=== PATIENT | male | born 1970 | race Caucasian/White ===

== ENCOUNTER 2018-03-11 16:31 | Observation (INO) | payer OTHER, SELFPAY ==
[2018-03-11] VITALS (8 sets, daily range): BP systolic 108–148; BP diastolic 66–95; PULSE 62–104; RESP 13–20; TEMP 35.6–36.5; O2SAT 96–100; BMI 32.8
--- NOTE | 2018-03-11 16:49 | DI.RAD.S_ITS ---
PROCEDURE: XR CHEST 1V INDICATIONS: Chest pain TECHNIQUE: One view of the chest was acquired. COMPARISON: None. FINDINGS: Surgical changes and devices: Clips at the gastroesophageal junction. Cholecystectomy clips. Lungs and pleura: No pleural effusions or pneumothorax. Lungs are clear. Mediastinum: Mediastinal contours appear normal. Heart size is normal. Bones and chest wall: No suspicious bony lesions. Overlying soft tissues appear unremarkable. IMPRESSION: No acute cardiopulmonary disease process. Dictated by: Agustina Angel MD, PhD on 03/11/2018 at 17:29 Approved by: Agustina Angel MD, PhD on 03/11/2018 at 17:30
[2018-03-11 17:11] LABS: HEMOLYSIS < 15 (0-50)
[2018-03-11 17:12] LABS: INR 1.1 (0.9-1.3); Prothrombin Time 11.9 SECONDS (10.1-12.7)
[2018-03-11 17:15] LABS: PTT Partial Thromboplastin Tim 17 SECONDS (26.4-36.2)
[2018-03-11 17:17] LABS: Blood Urea Nitrogen 18 mg/dL (9-20); Calcium 9.1 mg/dL (8.4-10.2); Carbon Dioxide 25 mmol/L (22-32); Chloride 108 mmol/L (98-107); Estimated Glomerular Filt Rate > 60.0 mL/min (>60); Glucose 81 mg/dL (70-100); Potassium 3.9 mmol/L (3.4-5.1); Sodium 142 mmol/L (137-145)
--- NOTE | 2018-03-11 17:17 | PC.NURSE ---
Intermittent chest pressure for 2 months. Worsening with exertion and SOB with exertion. Pt comes to ED today after continued chest pressure and 2 near syncopal episodes. Pt fell for one of the episodes and helped him to floor without injury. Pt states he was not doing anything in particular when he felt as if he was going to pass out. C/o a mild frontal headache. Denies SOB or any other symptoms at this time. at bedside.
[2018-03-11 17:30] LABS: Troponin I < 0.012 ng/mL (0.01-0.034)
[2018-03-11 17:53] LABS: Add Manual Diff / Slide Review NO; Basophils Percent Auto 0.7 % (0-2); Eosinophils Percent Auto 3.3 % (2-4); Hematocrit 39.2 % (41-53); Hemoglobin 13.1 g/dL (13.5-17.5); Lymphocytes Percent Auto 31.7 % (25-40); Mean Corpuscular HGB Conc 33.5 % (30-36); Mean Corpuscular Hemoglobin 28.2 PG (26-34); Mean Corpuscular Volume 84.2 fL (80-100); Monocytes Percent Auto 11.1 % (3-14); Neutrophils Absolute Auto 3800 /uL (3000-5900); Neutrophils Percent Auto 53.2 % (50-75); Platelet Count 176 X10^3/uL (150-400); Red Blood Cell Count 4.66 X10^6/uL (4.5-5.9); White Blood Cell Count 7.1 X10^3/uL (4.5-11.0)
--- NOTE | 2018-03-11 18:07 | ED.CHESTPAIN ---
HPI - Chest Pain <[facility] - Last Filed: 03/11/18 23:39> General Chief Complaint: Chest Pain Stated Complaint: CHEST PRESSURE, PASSED X 2 TODAY Time Seen by Provider: 03/11/18 16:48 Source: patient and family Mode of arrival: ambulatory Limitations: no limitations History of Present Illness HPI narrative: Patient presents with chest pain on off for the past several weeks. He has seen his primary care provider who did an EKG and some blood work. He states that this has happened twice today and is associated with some lightheadedness. He denies any feelings of palpitations, swelling in his feet, shortness of breath fever nausea vomiting or diarrhea. He states his pain is substernal and does not radiate anywhere. He states it is pressure. He denies any heart history, but states that is present is family. 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 Related Data Home Medications Medication Instructions Recorded Confirmed No Known Home Medications 03/11/18 03/11/18 Allergies Allergy/AdvReac Type Severity Reaction Status Date / Time No Known Drug Allergies Allergy Verified 03/11/18 22:14 Review of Systems <HOA Cruz - Last Filed: 03/11/18 23:39> Review of Systems GENERAL: See HPI HEENT: Denies sinus pain, ear pain, sore throat, difficulty swallowing, dizziness. RESPIRATORY: Denies dyspnea, cough, wheezing, hemoptysis, sputum. CARDIOVASCULAR: See HPI GASTROINTESTINAL: Denies nausea, vomiting, abdominal pain, diarrhea, constipation, melena. : Denies dysuria, frequency, incontinence, hematuria, urinary retention. MUSCULOSKELETAL: denies weakness, joint pain, or bony pain SKIN: Denies rash, skin lesions, or other NEUROLOGIC: see HPI PSYCHIATRIC: No concerning psychosocial issues. 12 point review of systems is negative except for those stated above Exam <HOA Cruz - Last Filed: 03/11/18 23:39> Narrative Exam Narrative: GENERAL: This is a well-nourished, well-developed patient, in no acute distress. HEAD: Atraumatic. Normocephalic. No temporal or scalp tenderness. EYES: Pupils equal round and reactive. Extraocular motions intact. No scleral icterus. No injection or drainage. ENT: Nose without bleeding, purulent drainage or septal hematoma. Throat without erythema, tonsillar hypertrophy or exudate. Uvula midline. Airway patent. NECK: Trachea midline. No JVD or lymphadenopathy. Supple, nontender, no meningeal signs. CARDIOVASCULAR: Regular rate and rhythm RESPIRATORY: Clear to auscultation. Breath sounds equal bilaterally. No wheezes, rales, or rhonchi. GASTROINTESTINAL: Abdomen soft, non-tender, nondistended. No hepato-splenomegaly, or palpable masses. No guarding. EXTREMITIES: No clubbing, cyanosis, or edema. No joint tenderness, effusion, or edema noted. BACK: Nontender without deformity or crepitance. No flank tenderness. NEURO: AOx3. Facial nerves grossly normal. Steady on feet. Clear speech. SKIN: No rash or erythema. Initial Vital Signs Initial Vital Signs: Vital Signs Temperature 96.1 F L 03/11/18 16:34 Pulse Rate 62 03/11/18 16:34 Respiratory Rate 16 03/11/18 16:34 Blood Pressure 125/80 H 03/11/18 16:34 Pulse Oximetry 98 03/11/18 16:34 <Anuj Go DO - Last Filed: 03/12/18 07:01> Initial Vital Signs Initial Vital Signs: Vital Signs Temperature 96.1 F L 03/11/18 16:34 Pulse Rate 62 03/11/18 16:34 Respiratory Rate 16 03/11/18 16:34 Blood Pressure 125/80 H 03/11/18 16:34 Pulse Oximetry 98 03/11/18 16:34 Course <ODALYS Cruz-[facility] - Last Filed: 03/11/18 23:39> Hospital Course: Patient presented the chief complaint of chest pain. An EKG was completed which showed sinus rhythm with PACs. The patient was placed on telemetry. An IV was then inserted and lab work was drawn. His lab work came back row see normal. However as I was speaking with him he was noted to be going in and out of AFib/flutter with associated chest pressure. I contacted Dr. Turpin who kindly agree to admit the patient for observation and cardiac rule out. His vital signs remained stable throughout his stay other than this transient tachycardia. Orders Ordered: ED Orders 03/11/18 22:05 Education, smoking cessation ONGOING 03/12/18 05:57 Troponin I Urgent Acetaminophen (Tylenol) 650 mg PO Q6HR PRN PRN Reason: As Needed for Fever/Mild Pain Aspirin (Aspirin Ec) 325 mg PO DAILY [facility] Enoxaparin Sodium (Lovenox) 40 mg SUBCUT DAILY [facility] Metoprolol Succinate (Toprol Xl) 50 mg PO DAILY [facility] Last Admin: 03/11/18 22:57 Dose: 50 mg Sodium Chloride (Normal Saline 0.9% Flush) 10 ml IV PRN PRN PRN Reason: Flush Sodium Chloride (Normal Saline 0.9% Flush) 10 ml IV BID [facility] Vital Signs - 8 hr 03/11/18 23:40 03/12/18 00:14 03/12/18 00:15 Temperature 98.0 F Pulse Rate 63 63 Respiratory Rate 16 Blood Pressure 115/67 115/67 Pulse Oximetry 96 96 03/12/18 02:00 03/12/18 06:38 Temperature 97.9 F Pulse Rate 56 L Respiratory Rate 14 16 Blood Pressure 119/66 Pulse Oximetry 94 <Anuj Go DO - Last Filed: 03/12/18 07:01> Orders Ordered: ED Orders 03/11/18 22:05 Education, smoking cessation ONGOING 03/12/18 05:57 Troponin I Urgent Acetaminophen (Tylenol) 650 mg PO Q6HR PRN PRN Reason: As Needed for Fever/Mild Pain Aspirin (Aspirin Ec) 325 mg PO DAILY [facility] Enoxaparin Sodium (Lovenox) 40 mg SUBCUT DAILY [facility] Metoprolol Succinate (Toprol Xl) 50 mg PO DAILY [facility] Last Admin: 03/11/18 22:57 Dose: 50 mg Sodium Chloride (Normal Saline 0.9% Flush) 10 ml IV PRN PRN PRN Reason: Flush Sodium Chloride (Normal Saline 0.9% Flush) 10 ml IV BID [facility] Vital Signs - 8 hr 03/11/18 23:40 03/12/18 00:14 03/12/18 00:15 Temperature 98.0 F Pulse Rate 63 63 Respiratory Rate 16 Blood Pressure 115/67 115/67 Pulse Oximetry 96 96 03/12/18 02:00 03/12/18 06:38 Temperature 97.9 F Pulse Rate 56 L Respiratory Rate 14 16 Blood Pressure 119/66 Pulse Oximetry 94 MDM - Chest Pain <SAMANTA Cruz - Last Filed: 03/11/18 23:39> Lab Data Attestation: I reviewed the patient's lab results. Result diagrams: 03/11/18 16:55 03/11/18 16:55 Lab Results 03/11/18 03/11/18 03/11/18 Range/Units 16:55 16:55 16:55 WBC 7.1 (4.5-11.0) X10^3/uL RBC 4.66 (4.5-5.9) X10^6/uL Hgb 13.1 L (13.5-17.5) g/dL Hct 39.2 L (41-53) % MCV 84.2 (80-100) fL MCH 28.2 (26-34) PG MCHC 33.5 (30-36) % RDW 14.0 (11.6-14.8) % Plt Count 176 (150-400) X10^3/uL Neut % (Auto) 53.2 (50-75) % Lymph % (Auto) 31.7 (25-40) % Dickson % (Auto) 11.1 (3-14) % Eos % (Auto) 3.3 (2-4) % Baso % (Auto) 0.7 (0-2) % Neut # (Auto) 3800 (4286-2481) /uL PT 11.9 (10.1-12.7) SECONDS INR 1.1 (0.9-1.3) APTT 17 L (26.4-36.2) SECONDS Sodium 142 (137-145) mmol/L Potassium 3.9 (3.4-5.1) mmol/L Chloride 108 H (98-107) mmol/L Carbon Dioxide 25 (22-32) mmol/L BUN 18 (9-20) mg/dL Creatinine 1.00 (0.66-1.25) mg/dL Estimated GFR > 60.0 (>60) mL/min BUN/Creatinine Ratio 18.0 (6-22) Glucose 81 (70-100) mg/dL Calcium 9.1 (8.4-10.2) mg/dL Magnesium (1.6-2.3) mg/dL Troponin I < 0.012 (0.01-0.034) ng/mL B-Natriuretic Peptide 71.6 (<100) TSH (0.47-4.68) uIU/mL 03/11/18 03/11/18 03/12/18 Range/Units 16:55 16:55 05:57 WBC (4.5-11.0) X10^3/uL RBC (4.5-5.9) X10^6/uL Hgb (13.5-17.5) g/dL Hct (41-53) % MCV (80-100) fL MCH (26-34) PG MCHC (30-36) % RDW (11.6-14.8) % Plt Count (150-400) X10^3/uL Neut % (Auto) (50-75) % Lymph % (Auto) (25-40) % Dickson % (Auto) (3-14) % Eos % (Auto) (2-4) % Baso % (Auto) (0-2) % Neut # (Auto) (6322-1354) /uL PT (10.1-12.7) SECONDS INR (0.9-1.3) APTT (26.4-36.2) SECONDS Sodium (137-145) mmol/L Potassium (3.4-5.1) mmol/L Chloride (98-107) mmol/L Carbon Dioxide (22-32) mmol/L BUN (9-20) mg/dL Creatinine (0.66-1.25) mg/dL Estimated GFR (>60) mL/min BUN/Creatinine Ratio (6-22) Glucose (70-100) mg/dL Calcium (8.4-10.2) mg/dL Magnesium 2.5 H (1.6-2.3) mg/dL Troponin I < 0.012 (0.01-0.034) ng/mL B-Natriuretic Peptide (<100) TSH 1.26 (0.47-4.68) uIU/mL Imaging Data Chest x-ray: Radiologist's impression: View Report History [address] [address] XRay Report Signed Patient: Kelby Watkins MR#: [id number] : 1970 Acct:[id number] Age/Sex: 48 / M Date of Service: 03/11/18 Loc: ED Accession Number: [id number] Procedure: XR chest 1V Ordering Provider: Anuj Go D.O. PROCEDURE: XR CHEST 1V INDICATIONS: Chest pain TECHNIQUE: One view of the chest was acquired. COMPARISON: None. FINDINGS: Surgical changes and devices: Clips at the gastroesophageal junction. Cholecystectomy clips. Lungs and pleura: No pleural effusions or pneumothorax. Lungs are clear. Mediastinum: Mediastinal contours appear normal. Heart size is normal. Bones and chest wall: No suspicious bony lesions. Overlying soft tissues appear unremarkable. IMPRESSION: No acute cardiopulmonary disease process. Dictated by: Agustina Angel MD, PhD on 03/11/2018 at 17:29 Approved by: Agustina Angel MD, PhD on 03/11/2018 at 17:30 ECG Data Attestation: I personally reviewed and interpreted this ECG as follows: Interpretation: Sinus rhythm with frequent PACs. Ventricular rate 69. No ST elevation or depression. MDM Narrative Medical decision making narrative: Patient presented with chief complaint of chest pain. His 1st troponin was negative. His EKG showed frequent PACs. However well speaking with the complaint of chest pressure and was noted to be in AFib flutter in the 150s. Given his new onset arrhythmia, I contacted Dr. Turpin who kindly agreed to admit the patient to observation. Patient and were in accordance with this plan. <Anuj Go, - Last Filed: 03/12/18 07:01> Lab Data Lab Results 03/11/18 03/11/18 03/11/18 Range/Units 16:55 16:55 16:55 WBC 7.1 (4.5-11.0) X10^3/uL RBC 4.66 (4.5-5.9) X10^6/uL Hgb 13.1 L (13.5-17.5) g/dL Hct 39.2 L (41-53) % MCV 84.2 (80-100) fL MCH 28.2 (26-34) PG MCHC 33.5 (30-36) % RDW 14.0 (11.6-14.8) % Plt Count 176 (150-400) X10^3/uL Neut % (Auto) 53.2 (50-75) % Lymph % (Auto) 31.7 (25-40) % Dickson % (Auto) 11.1 (3-14) % Eos % (Auto) 3.3 (2-4) % Baso % (Auto) 0.7 (0-2) % Neut # (Auto) 3800 (9885-0139) /uL PT 11.9 (10.1-12.7) SECONDS INR 1.1 (0.9-1.3) APTT 17 L (26.4-36.2) SECONDS Sodium 142 (137-145) mmol/L Potassium 3.9 (3.4-5.1) mmol/L Chloride 108 H (98-107) mmol/L Carbon Dioxide 25 (22-32) mmol/L BUN 18 (9-20) mg/dL Creatinine 1.00 (0.66-1.25) mg/dL Estimated GFR > 60.0 (>60) mL/min BUN/Creatinine Ratio 18.0 (6-22) Glucose 81 (70-100) mg/dL Calcium 9.1 (8.4-10.2) mg/dL Magnesium (1.6-2.3) mg/dL Troponin I < 0.012 (0.01-0.034) ng/mL B-Natriuretic Peptide 71.6 (<100) TSH (0.47-4.68) uIU/mL 03/11/18 03/11/18 03/12/18 Range/Units 16:55 16:55 05:57 WBC (4.5-11.0) X10^3/uL RBC (4.5-5.9) X10^6/uL Hgb (13.5-17.5) g/dL Hct (41-53) % MCV (80-100) fL MCH (26-34) PG MCHC (30-36) % RDW (11.6-14.8) % Plt Count (150-400) X10^3/uL Neut % (Auto) (50-75) % Lymph % (Auto) (25-40) % Dickson % (Auto) (3-14) % Eos % (Auto) (2-4) % Baso % (Auto) (0-2) % Neut # (Auto) (1436-9050) /uL PT (10.1-12.7) SECONDS INR (0.9-1.3) APTT (26.4-36.2) SECONDS Sodium (137-145) mmol/L Potassium (3.4-5.1) mmol/L Chloride (98-107) mmol/L Carbon Dioxide (22-32) mmol/L BUN (9-20) mg/dL Creatinine (0.66-1.25) mg/dL Estimated GFR (>60) mL/min BUN/Creatinine Ratio (6-22) Glucose (70-100) mg/dL Calcium (8.4-10.2) mg/dL Magnesium 2.5 H (1.6-2.3) mg/dL Troponin I < 0.012 (0.01-0.034) ng/mL B-Natriuretic Peptide (<100) TSH 1.26 (0.47-4.68) uIU/mL Discharge Plan Departure Patient Disposition: Admitted as Observation Clinical Impression: Atrial fib/flutter, transient, Chest pain Discharge Date/Time: 03/11/18 19:04 Interventions: ED Discharge Assessment Last Done: 03/11/18 18:45 Admit Date/Time: 03/11/18 18:51 Admit Provider: Isiah Turpin <Anuj Go DO - Last Filed: 03/12/18 07:01> [facility] ED Attending Alfredo Attestation: I was available for consultation during this patient's emergency department encounter
[2018-03-11 18:19] LABS: B Type Natriuretic Peptide 71.6 (<100)
--- NOTE | 2018-03-11 19:26 | PC.NURSE ---
Addendum entered by Lyubov Salazar R.N. 03/11/18 20:53: 2030 Dr. Papi garcia, awaiting for new orders. Original Note: Addendum entered by Lyubov Salazar R.N. 03/11/18 20:02: Telemetry: Afib CVR 60-99HR. Patient awake and alert, no chest pain or discomfort. Normotensive BP. O2 sat 97% on RA. No SOB or resp distress noted. Original Note: Admit note: Patient admitted at 1910 from ED to Acute Care accompanied by . Patient ambulated from gurney to bed with steady gait. Placed on Cardiac/Tele monitor. HR 90, irregular on ascultation. No c/o chest pain, SOB, dizziness, palpitations or nausea. 2 + LE and UE pulses. Mild facial pallor. Appears a bit discouraged to be admitted to the hospital but otherwise calm, cooperative and pleasant. Discussed importance of hospital admission and observation, updated regarding plan of care, room/environment. Call light within reach.
--- NOTE | 2018-03-11 22:12 | P.HP_ITS ---
History of Present Illness Date Patient Seen: 03/11/18 Time Patient Seen: 22:08 Chief complaint: CHEST PRESSURE, PASSED X 2 TODAY Narrative: 48-year-old male presents today with episode of lightheadedness initially brought him in and then while he was here he is noted to have some intermittent episodes of atrial flutter lasting for a minute or 2 and he has been having some off and on chest pain pain or pressure also that is been nonexertional atypical. Previously had a stress test many years ago that was unremarkable. He has not had any hypertension or hyperlipidemia. He is also a nonsmoker Patient History Surgical History History of cholecystectomy (Acute) Hx of appendectomy (Acute) Hx of gastric bypass (Acute) Family & Social History Social History: household members spouse Prior Living Arrangements House Safety & Behavioral: Feels Safe in Current Yes Environment Been Physically Hurt or No Threatened By a Person Suicidal Ideation Description None Tobacco & Substance use: Smoking Status Never smoker alcohol intake frequency other Substance Use Type does not use Meds Home Medications Medication Instructions Recorded Confirmed Type No Known Home Medications 03/11/18 03/11/18 History Allergies Allergy/AdvReac Type Severity Reaction Status Date / Time No Known Allergies Allergy Uncoded 12/31/17 12:40 Review of Systems Review of Systems All systems reviewed & are unremarkable except as noted in HPI and below Exam Vital Signs (past 8 hours): Vital Signs - 8 hr 3 03/11/18 16:34 03/11/18 17:32 03/11/18 18:30 Temperature 96.1 F L Pulse Rate 62 94 H 104 H Respiratory Rate 16 15 13 Blood Pressure 125/80 H Blood Pressure [Right Arm] 133/86 H 148/95 H Pulse Oximetry 98 99 100 3 03/11/18 18:57 03/11/18 19:45 03/11/18 21:42 Temperature 97.7 F 97.7 F Pulse Rate 90 89 84 Respiratory Rate 20 18 16 Blood Pressure 119/92 H 129/92 H 125/79 H Blood Pressure [Right Arm] Pulse Oximetry 100 97 96 Pulse Oximetry 96 Oxygen Delivery Method Room Air Const General: cooperative HENMT Head: normal to inspection and normocephalic Mouth: oral mucosae normal Neck Neck: full ROM and No JVD Carotids: normal carotid upstroke Chest Chest: normal inspection of the chest Resp Effort & Inspection: normal respiratory effort, able to speak in complete sentences and no respiratory distress Auscultation: clear to auscultation bilaterally Cardio Palpation: normal PMI Rate: regular rate Rhythm: regular rhythm Heart Sounds: S1 normal and S2 normal GI Inspection: normal to inspection Palpation: soft, no hepatosplenomegaly and No tender Auscultation: normal bowel sounds Neuro General: alert, awake, oriented x3 and CN's II-XI intact bilaterally Psych Affect: normal affect Attitude: cooperative Thought Process: normal Thought Content: normal Judgment: judgment good Objective Labs Result Diagrams: 03/11/18 16:55 03/11/18 16:55 Labs: Laboratory Results - last 24 hr 03/11/18 03/11/18 03/11/18 16:55 16:55 16:55 WBC 7.1 RBC 4.66 Hgb 13.1 L Hct 39.2 L MCV 84.2 MCH 28.2 MCHC 33.5 RDW 14.0 Plt Count 176 Neut % (Auto) 53.2 Lymph % (Auto) 31.7 Wayne % (Auto) 11.1 Eos % (Auto) 3.3 Baso % (Auto) 0.7 Neut # (Auto) 3800 PT 11.9 INR 1.1 APTT 17 L Sodium 142 Potassium 3.9 Chloride 108 H Carbon Dioxide 25 BUN 18 Creatinine 1.00 Estimated GFR > 60.0 BUN/Creatinine Ratio 18.0 Glucose 81 Calcium 9.1 Troponin I < 0.012 B-Natriuretic Peptide 71.6 Assessment & Plan Plan: Assessment/Plan Narrative: One. Chest pain with associated intermittent atrial flutter. Plan to check thyroid magnesium his potassium was normal. Serial troponins will be checked. Probably needs an echo and stress test. Monitor overnight with telemetry.
[2018-03-11 22:36] LABS: Magnesium 2.5 mg/dL (1.6-2.3)
[2018-03-11] MEDS: METOPROLOL ER 50 MG TABLET PO (22:57)
[2018-03-11 23:07] LABS: TSH w/ Reflex to FT4 1.26 uIU/mL (0.47-4.68)
--- NOTE | 2018-03-11 23:39 | ED_ITS ---
H[facility] - Chest Pain [facility] Last Filed: 03/11/18 23:39> General Chief Complaint: Chest Pain Stated Complaint: CHEST PRESSURE, PASSED X 2 TODAY Time Seen by Provider: 03/11/18 16:48 Source: patient and family Mode of arrival: ambulatory Limitations: no limitations History of Present Illness HPI narrative: Patient presents with chest pain on off for the past several weeks. He has seen his primary care provider who did an EKG and some blood work. He states that this has happened twice today and is associated with some lightheadedness. He denies any feelings of palpitations, swelling in his feet, shortness of breath fever nausea vomiting or diarrhea. He states his pain is substernal and does not radiate anywhere. He states it is pressure. He denies any heart history, but states that is present is family. 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 Related Data Home Medications Medication Instructions Recorded Confirmed No Known Home Medications 03/11/18 03/11/18 Allergies Allergy/AdvReac Type Severity Reaction Status Date / Time No Known Drug Allergies Allergy Verified 03/11/18 22:14 Review of Systems <HOA Cruz - Last Filed: 03/11/18 23:39> Review of Systems GENERAL: See HPI HEENT: Denies sinus pain, ear pain, sore throat, difficulty swallowing, dizziness. RESPIRATORY: Denies dyspnea, cough, wheezing, hemoptysis, sputum. CARDIOVASCULAR: See HPI GASTROINTESTINAL: Denies nausea, vomiting, abdominal pain, diarrhea, constipation, melena. : Denies dysuria, frequency, incontinence, hematuria, urinary retention. MUSCULOSKELETAL: denies weakness, joint pain, or bony pain SKIN: Denies rash, skin lesions, or other NEUROLOGIC: see HPI PSYCHIATRIC: No concerning psychosocial issues. 12 point review of systems is negative except for those stated above Exam <HOA Cruz - Last Filed: 03/11/18 23:39> Narrative Exam Narrative: GENERAL: This is a well-nourished, well-developed patient, in no acute distress. HEAD: Atraumatic. Normocephalic. No temporal or scalp tenderness. EYES: Pupils equal round and reactive. Extraocular motions intact. No scleral icterus. No injection or drainage. ENT: Nose without bleeding, purulent drainage or septal hematoma. Throat without erythema, tonsillar hypertrophy or exudate. Uvula midline. Airway patent. NECK: Trachea midline. No JVD or lymphadenopathy. Supple, nontender, no meningeal signs. CARDIOVASCULAR: Regular rate and rhythm RESPIRATORY: Clear to auscultation. Breath sounds equal bilaterally. No wheezes , rales, or rhonchi. GASTROINTESTINAL: Abdomen soft, non-tender, nondistended. No hepato-splenomegaly , or palpable masses. No guarding. EXTREMITIES: No clubbing, cyanosis, or edema. No joint tenderness, effusion, or edema noted. BACK: Nontender without deformity or crepitance. No flank tenderness. NEURO: AOx3. Facial nerves grossly normal. Steady on feet. Clear speech. SKIN: No rash or erythema. Initial Vital Signs Initial Vital Signs: Vital Signs Temperature 96.1 F L 03/11/18 16:34 Pulse Rate 62 03/11/18 16:34 Respiratory Rate 16 03/11/18 16:34 Blood Pressure 125/80 H 03/11/18 16:34 Pulse Oximetry 98 03/11/18 16:34 <Anuj Go DO - Last Filed: 03/12/18 07:01> Initial Vital Signs Initial Vital Signs: Vital Signs Temperature 96.1 F L 03/11/18 16:34 Pulse Rate 62 03/11/18 16:34 Respiratory Rate 16 03/11/18 16:34 Blood Pressure 125/80 H 03/11/18 16:34 Pulse Oximetry 98 03/11/18 16:34 Course <ODALYS Cruz-[facility] - Last Filed: 03/11/18 23:39> Hospital Course: Patient presented the chief complaint of chest pain. An EKG was completed which showed sinus rhythm with PACs. The patient was placed on telemetry. An IV was then inserted and lab work was drawn. His lab work came back row see normal. However as I was speaking with him he was noted to be going in and out of AFib/ flutter with associated chest pressure. I contacted Dr. Turpin who kindly agree to admit the patient for observation and cardiac rule out. His vital signs remained stable throughout his stay other than this transient tachycardia. Orders Ordered: ED Orders 03/11/18 22:05 Education, smoking cessation ONGOING 03/12/18 05:57 Troponin I Urgent Acetaminophen (Tylenol) 650 mg PO Q6HR PRN PRN Reason: As Needed for Fever/Mild Pain Aspirin (Aspirin Ec) 325 mg PO DAILY [facility] Enoxaparin Sodium (Lovenox) 40 mg SUBCUT DAILY [facility] Metoprolol Succinate (Toprol Xl) 50 mg PO DAILY [facility] Last Admin: 03/11/18 22:57 Dose: 50 mg Sodium Chloride (Normal Saline 0.9% Flush) 10 ml IV PRN PRN PRN Reason: Flush Sodium Chloride (Normal Saline 0.9% Flush) 10 ml IV BID [facility] Vital Signs - 8 hr 03/11/18 23:40 03/12/18 00:14 03/12/18 00:15 Temperature 98.0 F Pulse Rate 63 63 Respiratory Rate 16 Blood Pressure 115/67 115/67 Pulse Oximetry 96 96 03/12/18 02:00 03/12/18 06:38 Temperature 97.9 F Pulse Rate 56 L Respiratory Rate 14 16 Blood Pressure 119/66 Pulse Oximetry 94 <Anuj Go DO - Last Filed: 03/12/18 07:01> Orders Ordered: ED Orders 03/11/18 22:05 Education, smoking cessation ONGOING 03/12/18 05:57 Troponin I Urgent Acetaminophen (Tylenol) 650 mg PO Q6HR PRN PRN Reason: As Needed for Fever/Mild Pain Aspirin (Aspirin Ec) 325 mg PO DAILY [facility] Enoxaparin Sodium (Lovenox) 40 mg SUBCUT DAILY [facility] Metoprolol Succinate (Toprol Xl) 50 mg PO DAILY [facility] Last Admin: 03/11/18 22:57 Dose: 50 mg Sodium Chloride (Normal Saline 0.9% Flush) 10 ml IV PRN PRN PRN Reason: Flush Sodium Chloride (Normal Saline 0.9% Flush) 10 ml IV BID [facility] Vital Signs - 8 hr 03/11/18 23:40 03/12/18 00:14 03/12/18 00:15 Temperature 98.0 F Pulse Rate 63 63 Respiratory Rate 16 Blood Pressure 115/67 115/67 Pulse Oximetry 96 96 03/12/18 02:00 03/12/18 06:38 Temperature 97.9 F Pulse Rate 56 L Respiratory Rate 14 16 Blood Pressure 119/66 Pulse Oximetry 94 MDM - Chest Pain <SAMANTA Cruz - Last Filed: 03/11/18 23:39> Lab Data Attestation: I reviewed the patient's lab results. Result diagrams: 03/11/18 16:55 03/11/18 16:55 Lab Results 03/11/18 03/11/18 03/11/18 Range/Units 16:55 16:55 16:55 WBC 7.1 (4.5-11.0) X10^3/uL RBC 4.66 (4.5-5.9) X10^6/uL Hgb 13.1 L (13.5-17.5) g/dL Hct 39.2 L (41-53) % MCV 84.2 (80-100) fL MCH 28.2 (26-34) PG MCHC 33.5 (30-36) % RDW 14.0 (11.6-14.8) % Plt Count 176 (150-400) X10^3/uL Neut % (Auto) 53.2 (50-75) % Lymph % (Auto) 31.7 (25-40) % [place] % (Auto) 11.1 (3-14) % Eos % (Auto) 3.3 (2-4) % Baso % (Auto) 0.7 (0-2) % Neut # (Auto) 3800 (9373-9886) /uL PT 11.9 (10.1-12.7) SECONDS INR 1.1 (0.9-1.3) APTT 17 L (26.4-36.2) SECONDS Sodium 142 (137-145) mmol/L Potassium 3.9 (3.4-5.1) mmol/L Chloride 108 H (98-107) mmol/L Carbon Dioxide 25 (22-32) mmol/L BUN 18 (9-20) mg/dL Creatinine 1.00 (0.66-1.25) mg/dL Estimated GFR > 60.0 (>60) mL/min BUN/Creatinine Ratio 18.0 (6-22) Glucose 81 (70-100) mg/dL Calcium 9.1 (8.4-10.2) mg/dL Magnesium (1.6-2.3) mg/dL Troponin I < 0.012 (0.01-0.034) ng/mL B-Natriuretic Peptide 71.6 (<100) TSH (0.47-4.68) uIU/mL 03/11/18 03/11/18 03/12/18 Range/Units 16:55 16:55 05:57 WBC (4.5-11.0) X10^3/uL RBC (4.5-5.9) X10^6/uL Hgb (13.5-17.5) g/dL Hct (41-53) % MCV (80-100) fL MCH (26-34) PG MCHC (30-36) % RDW (11.6-14.8) % Plt Count (150-400) X10^3/uL Neut % (Auto) (50-75) % Lymph % (Auto) (25-40) % [place] % (Auto) (3-14) % Eos % (Auto) (2-4) % Baso % (Auto) (0-2) % Neut # (Auto) (7965-6472) /uL PT (10.1-12.7) SECONDS INR (0.9-1.3) APTT (26.4-36.2) SECONDS Sodium (137-145) mmol/L Potassium (3.4-5.1) mmol/L Chloride (98-107) mmol/L Carbon Dioxide (22-32) mmol/L BUN (9-20) mg/dL Creatinine (0.66-1.25) mg/dL Estimated GFR (>60) mL/min BUN/Creatinine Ratio (6-22) Glucose (70-100) mg/dL Calcium (8.4-10.2) mg/dL Magnesium 2.5 H (1.6-2.3) mg/dL Troponin I < 0.012 (0.01-0.034) ng/mL B-Natriuretic Peptide (<100) TSH 1.26 (0.47-4.68) uIU/mL Imaging Data Chest x-ray: Radiologist's impression: View Report History [address] [address] XRay Report Signed Patient: Kelby Watkins MR#: [id number] : 1970 Acct:[id number] Age/Sex: 48 / M Date of Service: 03/11/18 Loc: ED Accession Number: [id number] Procedure: XR chest 1V Ordering Provider: Anuj Go D.O. PROCEDURE: XR CHEST 1V INDICATIONS: Chest pain TECHNIQUE: One view of the chest was acquired. COMPARISON: None. FINDINGS: Surgical changes and devices: Clips at the gastroesophageal junction. Cholecystectomy clips. Lungs and pleura: No pleural effusions or pneumothorax. Lungs are clear. Mediastinum: Mediastinal contours appear normal. Heart size is normal. Bones and chest wall: No suspicious bony lesions. Overlying soft tissues appear unremarkable. IMPRESSION: No acute cardiopulmonary disease process. Dictated by: Agustina Angel MD, PhD on 03/11/2018 at 17:29 Approved by: Agustina Angel MD, PhD on 03/11/2018 at 17:30 ECG Data Attestation: I personally reviewed and interpreted this ECG as follows: Interpretation: Sinus rhythm with frequent PACs. Ventricular rate 69. No ST elevation or depression. MDM Narrative Medical decision making narrative: Patient presented with chief complaint of chest pain. His 1st troponin was negative. His EKG showed frequent PACs. However well speaking with the complaint of chest pressure and was noted to be in AFib flutter in the 150s. Given his new onset arrhythmia, I contacted Dr. Turpin who kindly agreed to admit the patient to observation. Patient and were in accordance with this plan. <Anuj Go, - Last Filed: 03/12/18 07:01> Lab Data Lab Results 03/11/18 03/11/18 03/11/18 Range/Units 16:55 16:55 16:55 WBC 7.1 (4.5-11.0) X10^3/uL RBC 4.66 (4.5-5.9) X10^6/uL Hgb 13.1 L (13.5-17.5) g/dL Hct 39.2 L (41-53) % MCV 84.2 (80-100) fL MCH 28.2 (26-34) PG MCHC 33.5 (30-36) % RDW 14.0 (11.6-14.8) % Plt Count 176 (150-400) X10^3/uL Neut % (Auto) 53.2 (50-75) % Lymph % (Auto) 31.7 (25-40) % [place] % (Auto) 11.1 (3-14) % Eos % (Auto) 3.3 (2-4) % Baso % (Auto) 0.7 (0-2) % Neut # (Auto) 3800 (6775-1816) /uL PT 11.9 (10.1-12.7) SECONDS INR 1.1 (0.9-1.3) APTT 17 L (26.4-36.2) SECONDS Sodium 142 (137-145) mmol/L Potassium 3.9 (3.4-5.1) mmol/L Chloride 108 H (98-107) mmol/L Carbon Dioxide 25 (22-32) mmol/L BUN 18 (9-20) mg/dL Creatinine 1.00 (0.66-1.25) mg/dL Estimated GFR > 60.0 (>60) mL/min BUN/Creatinine Ratio 18.0 (6-22) Glucose 81 (70-100) mg/dL Calcium 9.1 (8.4-10.2) mg/dL Magnesium (1.6-2.3) mg/dL Troponin I < 0.012 (0.01-0.034) ng/mL B-Natriuretic Peptide 71.6 (<100) TSH (0.47-4.68) uIU/mL 03/11/18 03/11/18 03/12/18 Range/Units 16:55 16:55 05:57 WBC (4.5-11.0) X10^3/uL RBC (4.5-5.9) X10^6/uL Hgb (13.5-17.5) g/dL Hct (41-53) % MCV (80-100) fL MCH (26-34) PG MCHC (30-36) % RDW (11.6-14.8) % Plt Count (150-400) X10^3/uL Neut % (Auto) (50-75) % Lymph % (Auto) (25-40) % [place] % (Auto) (3-14) % Eos % (Auto) (2-4) % Baso % (Auto) (0-2) % Neut # (Auto) (4038-6914) /uL PT (10.1-12.7) SECONDS INR (0.9-1.3) APTT (26.4-36.2) SECONDS Sodium (137-145) mmol/L Potassium (3.4-5.1) mmol/L Chloride (98-107) mmol/L Carbon Dioxide (22-32) mmol/L BUN (9-20) mg/dL Creatinine (0.66-1.25) mg/dL Estimated GFR (>60) mL/min BUN/Creatinine Ratio (6-22) Glucose (70-100) mg/dL Calcium (8.4-10.2) mg/dL Magnesium 2.5 H (1.6-2.3) mg/dL Troponin I < 0.012 (0.01-0.034) ng/mL B-Natriuretic Peptide (<100) TSH 1.26 (0.47-4.68) uIU/mL Discharge Plan Departure Patient Disposition: Admitted as Observation Clinical Impression: Atrial fib/flutter, transient, Chest pain Discharge Date/Time: 03/11/18 19:04 Interventions: ED Discharge Assessment Last Done: 03/11/18 18:45 Admit Date/Time: 03/11/18 18:51 Admit Provider: Isiah Turpin <Anuj Go DO - Last Filed: 03/12/18 07:01> [facility] ED Attending Alfredo Attestation: I was available for consultation during this patient's emergency department encounter
[2018-03-12] VITALS (7 sets, daily range): BP systolic 109–124; BP diastolic 66–75; PULSE 56–63; RESP 14–16; TEMP 36.4–36.7; O2SAT 94–97
--- NOTE | 2018-03-12 04:52 | PC.NURSE ---
Rda- Pt able to make needs known, reports / mid upper,left chest pressure upon rest during initial assessment. States that pressure is constant in various degrees of intensity. Explained to pt to report any distressing chest pain/pressure. HR slightly irregular, 64bpm. No reports of distress throughout night, slept fair. On telemetry throughout night. Aware of ECHO test in AM.
[2018-03-12 06:34] LABS: Troponin I < 0.012 ng/mL (0.01-0.034)
[2018-03-12] MEDS: METOPROLOL ER 50 MG TABLET PO (08:20)
[2018-03-12] MEDS: SODIUM CHLORIDE 0.9% FLUSH 10 ML IV (08:20)
[2018-03-12] MEDS: ENOXAPARIN 40 MG/0.4 ML SYRINGE SUBCUT (08:20)
[2018-03-12] MEDS: ASPIRIN EC 325 MG TABLET PO (08:20)
--- NOTE | 2018-03-12 10:18 | PM.DS.1 ---
History of Present Illness Date Patient Seen: 03/12/18 Time Patient Seen: 10:00 Chief complaint: CHEST PRESSURE, PASSED X 2 TODAY Narrative: 48-year-old male presents today with episode of lightheadedness initially brought him in and then while he was here he is noted to have some intermittent episodes of atrial flutter lasting for a minute or 2 and he has been having some off and on chest pain pain or pressure also that is been nonexertional atypical. Previously had a stress test many years ago that was unremarkable. He has not had any hypertension or hyperlipidemia. He is also a nonsmoker Discharge Providers Date of admission: 03/11/18 18:51 Primary care physician: Vidhi Betancourt DO Discharge provider: Dana Anderson MD Summary Discharge Diagnosis: 1. Paroxysmal atrial fibrillation, new diagnosis 2. Chest pain Hospital Course: Patient was put on telemetry monitoring. He was noticed to be in paroxysmal atrial fibrillation. He was started on metoprolol 50 mg once a day and full-dose aspirin. He self converted to sinus rhythm. He was ruled out for [place] with 2-troponins. His TSH was normal. He will be discharged home today with the plan for outpatient echocardiogram and cardiac stress test. He had history of gastric bypass surgery, therefore aspirin may not be a good choice for him. I have started him on Plavix 75 mg once a day for anticoagulation. Exam Vital Signs (past 8 hours): Vital Signs - 8 hr 03/12/18 06:38 03/12/18 07:44 03/12/18 08:00 Temperature 97.9 F 97.5 F L Pulse Rate 56 L 60 Respiratory Rate 16 16 Blood Pressure 119/66 109/75 Pulse Oximetry 94 96 97 03/12/18 09:30 Temperature Pulse Rate 57 L Respiratory Rate Blood Pressure 124/66 H Pulse Oximetry Pulse Oximetry 97 Oxygen Delivery Method Room Air Oxygen Flow Rate 0 Objective Imaging Chest x-ray: Radiologist's impression: No acute cardiopulmonary disease process. ECG: Atrial fibrillation Labs Result Diagrams: 03/11/18 16:55 03/11/18 16:55 Labs: Laboratory Results - last 24 hr 03/11/18 03/11/18 03/11/18 16:55 16:55 16:55 WBC 7.1 RBC 4.66 Hgb 13.1 L Hct 39.2 L MCV 84.2 MCH 28.2 MCHC 33.5 RDW 14.0 Plt Count 176 Neut % (Auto) 53.2 Lymph % (Auto) 31.7 [place] % (Auto) 11.1 Eos % (Auto) 3.3 Baso % (Auto) 0.7 Neut # (Auto) 3800 PT 11.9 INR 1.1 APTT 17 L Sodium 142 Potassium 3.9 Chloride 108 H Carbon Dioxide 25 BUN 18 Creatinine 1.00 Estimated GFR > 60.0 BUN/Creatinine Ratio 18.0 Glucose 81 Calcium 9.1 Magnesium Troponin I < 0.012 B-Natriuretic Peptide 71.6 TSH 03/11/18 03/11/18 03/12/18 16:55 16:55 05:57 WBC RBC Hgb Hct MCV MCH MCHC RDW Plt Count Neut % (Auto) Lymph % (Auto) [place] % (Auto) Eos % (Auto) Baso % (Auto) Neut # (Auto) PT INR APTT Sodium Potassium Chloride Carbon Dioxide BUN Creatinine Estimated GFR BUN/Creatinine Ratio Glucose Calcium Magnesium 2.5 H Troponin I < 0.012 B-Natriuretic Peptide TSH 1.26 Discharge Plan Discharge Plan Patient Disposition: Home, Self-Care Discharge comment: Follow up with primary care provider within 7 days. Outpatient echocardiogram and cardiac stress test Provider Discharge Instructions Diet: Low-fat Activity: As tolerated Discharge Data Primary Care Provider: Vidhi Betancourt Attending Provider: Isiah Turpin Admit Date/Time: 03/11/18 18:51
--- NOTE | 2018-03-12 10:22 | P.DS_ITS ---
History of Present Illness Date Patient Seen: 03/12/18 Time Patient Seen: 10:00 Chief complaint: CHEST PRESSURE, PASSED X 2 TODAY Narrative: 48-year-old male presents today with episode of lightheadedness initially brought him in and then while he was here he is noted to have some intermittent episodes of atrial flutter lasting for a minute or 2 and he has been having some off and on chest pain pain or pressure also that is been nonexertional atypical. Previously had a stress test many years ago that was unremarkable. He has not had any hypertension or hyperlipidemia. He is also a nonsmoker Discharge Providers Date of admission: 03/11/18 18:51 Primary care physician: Vidhi Betancourt DO Discharge provider: Dana Anderson MD Summary Discharge Diagnosis: 1. Paroxysmal atrial fibrillation, new diagnosis 2. Chest pain Hospital Course: Patient was put on telemetry monitoring. He was noticed to be in paroxysmal atrial fibrillation. He was started on metoprolol 50 mg once a day and full-dose aspirin. He self converted to sinus rhythm. He was ruled out for [place] with 2-troponins. His TSH was normal. He will be discharged home today with the plan for outpatient echocardiogram and cardiac stress test. He had history of gastric bypass surgery, therefore aspirin may not be a good choice for him. I have started him on Plavix 75 mg once a day for anticoagulation. Exam Vital Signs (past 8 hours): Vital Signs - 8 hr 3 03/12/18 06:38 03/12/18 07:44 03/12/18 08:00 Temperature 97.9 F 97.5 F L Pulse Rate 56 L 60 Respiratory Rate 16 16 Blood Pressure 119/66 109/75 Pulse Oximetry 94 96 97 3 03/12/18 09:30 Temperature Pulse Rate 57 L Respiratory Rate Blood Pressure 124/66 H Pulse Oximetry Pulse Oximetry 97 Oxygen Delivery Method Room Air Oxygen Flow Rate 0 Objective Imaging Chest x-ray: Radiologist's impression: No acute cardiopulmonary disease process. ECG: Atrial fibrillation Labs Result Diagrams: 03/11/18 16:55 03/11/18 16:55 Labs: Laboratory Results - last 24 hr 03/11/18 03/11/18 03/11/18 16:55 16:55 16:55 WBC 7.1 RBC 4.66 Hgb 13.1 L Hct 39.2 L MCV 84.2 MCH 28.2 MCHC 33.5 RDW 14.0 Plt Count 176 Neut % (Auto) 53.2 Lymph % (Auto) 31.7 [place] % (Auto) 11.1 Eos % (Auto) 3.3 Baso % (Auto) 0.7 Neut # (Auto) 3800 PT 11.9 INR 1.1 APTT 17 L Sodium 142 Potassium 3.9 Chloride 108 H Carbon Dioxide 25 BUN 18 Creatinine 1.00 Estimated GFR > 60.0 BUN/Creatinine Ratio 18.0 Glucose 81 Calcium 9.1 Magnesium Troponin I < 0.012 B-Natriuretic Peptide 71.6 TSH 03/11/18 03/11/18 03/12/18 16:55 16:55 05:57 WBC RBC Hgb Hct MCV MCH MCHC RDW Plt Count Neut % (Auto) Lymph % (Auto) [place] % (Auto) Eos % (Auto) Baso % (Auto) Neut # (Auto) PT INR APTT Sodium Potassium Chloride Carbon Dioxide BUN Creatinine Estimated GFR BUN/Creatinine Ratio Glucose Calcium Magnesium 2.5 H Troponin I < 0.012 B-Natriuretic Peptide TSH 1.26 Discharge Plan Discharge Plan Patient Disposition: Home, Self-Care Discharge comment: Follow up with primary care provider within 7 days. Outpatient echocardiogram and cardiac stress test Provider Discharge Instructions Diet: Low-fat Activity: As tolerated Discharge Data Primary Care Provider: Vidhi Betancourt Attending Provider: Isiah Turpin Admit Date/Time: 03/11/18 18:51
--- NOTE | 2018-03-12 11:21 | PC.NURSE ---
Day shift: Pt left unit at 1121 with his spouse. Lc CREW MANAGER walked them out to personal vehicle. Pt has all personal belongings. Paperwork signed and all questions answered. Pt encouraged to drink plenty of fluids and to make FU appt w/ his PCP [facility].
--- NOTE | 2018-03-12 14:38 | CM.DANOTE ---
Discharge Plan/Discharge note: 48 year old male was admitted to hospital with chest pressure and syncope. Had been on telemetry, which noted a-fib. Patient was started on Metoprolol and aspirin. Patient also placed on Plavix. Patient was ruled out for [place], secondary to troponin level. Met with patient today, alert and oriented, plans to go home. Patient stated that he is independent, lives with his . He will be following up in 7 days with his primary MD at [facility] in [place], and will have outpatient stress test and echocardiogram.
== END 2018-03-12 11:23 | disposition home or self-care (01) ==
LOC: ED 18:22 → AC 18:52
PROVIDERS: Emergency Medicine; Admitting Provider Internal Medicine; Emergency Provider Nurse Practitioner Family; Family Provider Family Medicine; PCP Family Medicine; Visit Provider Internal Medicine
DX: R07.9 Chest pain, unspecified (principal); I48.0 Paroxysmal atrial fibrillation
CPT/HCPCS: 36415; 36591; 71045; 80048; 83735; 83880; 84443; 84484; 85025; 85610; 85730; 93005; 93010; 99283; 99285; G0378; J1650

== ENCOUNTER → 2018-03-26 09:35 | Outpatient (CLI) | payer OTHER, SELFPAY ==
[2018-03-11 19:04] VITALS: BMI 32.8
--- NOTE | 2018-03-26 | DI.ECHO.S_ITS ---
[facility]---------+ [facility] +---------+ : : [address] : : : : [id number] : : : : Phone: [phone] Echocardiogram Report + + :Name: SARI TODD Study Date: 03/26/2018 Height: 73 in : :[facility] Weight: 250 lb : : Gender: Male BSA: 2.4 m2 : :: 1970 Age: 48 yrs BP: 122/86 mmHg: :Reason For Study: Atrial fibrillation - paroxysmal : : Performed By: Paula Obregon : :Referring: INOCENTE ANDERSON M : + + Interpretation Summary Sinus bradycardia. Heart rate is 46-51 bpm. Normal LV size, wall thickness, wall motion and left ventricular systolic function. Ejection fraction is 60??65 percent. Moderate left atrial enlargement. Otherwise normal chamber sizes. No significant valvular abnormalities. No prior study available for comparison. Procedure: A two-dimensional transthoracic echocardiogram with color flow and Doppler was performed. The study quality was technically adequate. There is no prior echocardiogram noted for this patient. The patient was in normal sinus rhythm during the exam. Left Ventricle: The left ventricle is normal in size, wall thickness, and systolic function without any focal wall motion abnormalities. The ejection fraction is estimated to be 60-65%. Assessment of diastolic parameters indicates normal left ventricular diastolic function and normal filling pressures. Right Ventricle: Borderline right ventricular enlargement. The right ventricular systolic function is normal. Atria: The left atrium is moderately dilated. Right atrial size is normal. Mitral Valve: The mitral valve is normal in structure and function. There is trace mitral regurgitation. Aortic Valve: The aortic valve is trileaflet. The aortic valve opens well. There is trace aortic regurgitation. Tricuspid Valve: The tricuspid valve is normal in structure and function. There is a trace or physiologic amount of tricuspid regurgitation. The right ventricular systolic pressure is estimated at 27 mmHg assuming a right atrial pressure of 3 mm Hg. Pulmonic Valve: The pulmonic valve is normal in structure and function. There is trace pulmonic regurgitation. Great Vessels: The ascending aorta is at the upper limits of normal in size. The IVC is of normal diameter and collapses greater than 50% with a sniff. This suggests a low right atrial pressure of 3 mm Hg. Pericardium/ Pleura There is no pericardial effusion. There is no pleural effusion. MMode/2D Measurements & Calculations LVIDd: 5.2 cm Ao root diam: 3.8 cm LVIDs: 3.4 cm Aortic Jxn: 3.2 cm FS: 35.0 % asc Aorta Diam: 3.6 cm EPSS: 0.38 cm Ao Arch Diam (Prox Trans): 3.3 cm IVSd: 0.77 cm LVPWd: 0.87 cm LV roberson. diameter/BSA (cm/m^2): 2.2 LV sys. diameter/BSA (cm/m^2): 1.4 LA dimension: 4.2 cm RA long axis: 5.2 cm LA A2 area: 30.9 cm2 RA area: 18.6 cm2 LA A4 area: 26.6 cm2 RA vol: 55.8 ml LA length (vol): 5.9 cm RA : 23.6 ml/m2 LA vol: 117.9 ml IVC diam: 1.6 cm LA vol index: 49.8 ml/m2 RVDd major: 6.1 cm RVD1 (basal): 4.0 cm RVD2 (mid): 3.7 cm Doppler Measurements & Calculations Ao V2 max: 141.6 cm/sec MV E max dima: 87.5 cm/sec Ao V2 mean: 91.2 cm/sec MV A max dima: 63.5 cm/sec Ao max P.0 mmHg MV E/A: 1.4 Ao mean P.9 mmHg Med Peak E' Dima: 9.1 cm/sec Ao V2 VTI: 32.9 cm E/E' med: 9.7 Lat Peak E' Dima: 9.8 cm/sec E/E' lat: 8.9 E/e' average: 9.3 MV dec time: 0.20 sec MV P1/2t: 55.6 msec TR max dima: 241.4 cm/sec MV P1/2t max dima: 86.3 cm/sec TR max P.3 mmHg MVA(P1/2t): 4.0 cm2 PA V2 max: 108.5 cm/sec PA V2 mean: 71.7 cm/sec PA mean P.4 mmHg PA Accel Time: 0.18 sec Reading Physician:08:00 AM
== END ==
PROVIDERS: Family Provider Family Medicine; PCP Family Medicine; Visit Provider Family Medicine
DX: I48.0 Paroxysmal atrial fibrillation (principal)
CPT/HCPCS: 93306

== ENCOUNTER 2018-03-29 09:07 | Emergency (ER) | payer OTHER, SELFPAY ==
[2018-03-11 19:04] VITALS: BMI 32.8
[2018-03-29 09:10] VITALS: BP 127/93; PULSE 60; RESP 20; TEMP 36.7; O2SAT 100
--- NOTE | 2018-03-29 09:33 | DI.RAD.S_ITS ---
PROCEDURE: XR CHEST 2V INDICATIONS: chest pain TECHNIQUE: 2 views of the chest were acquired. COMPARISON: None. FINDINGS: Surgical changes and devices: None. Lungs and pleura: No pleural effusions or pneumothorax. Lungs are clear. Mediastinum: Mediastinal contours are normal. Heart size is normal. Bones and chest wall: No suspicious bony abnormalities. Soft tissues appear unremarkable. IMPRESSION: No acute disease Dictated by: Rob Garcia M.D. on 03/29/2018 at 10:09 Approved by: Rob Garcia M.D. on 03/29/2018 at 10:10
--- NOTE | 2018-03-29 09:36 | ED_ITS ---
HPI - Chest Pain General Chief Complaint: Chest Pain Stated Complaint: afib Time Seen by Provider: 03/29/18 09:32 Source: patient Mode of arrival: ambulatory Limitations: no limitations History of Present Illness HPI narrative: Patient is a 48-year-old male who presents with chest pain. He said that he has been having chest pain off and on for the last 2 months. He was admitted in February for transient AFib. He says yesterday he had some palpitations. Today about an hour and half ago he had severe chest pain when not shower. He was not dizzy lightheaded or nauseous. Pain is not radiating he is currently chest pain-free. His he took his Plavix and his beta abelino this morning. MD complaint: chest pain Related Data Home Medications Medication Instructions Recorded Confirmed metoprolol succinate [Toprol XL] 25 mg PO DAILY 03/29/18 03/29/18 Previous Rx's Medication Instructions Recorded clopidogrel [Plavix] 75 mg PO DAILY #30 tab 03/12/18 Allergies Allergy/AdvReac Type Severity Reaction Status Date / Time No Known Drug Allergies Allergy Verified 03/11/18 22:14 Review of Systems Review of Systems GENERAL: Denies chills, fatigue, malaise, fever, sweats, travel HEENT: Denies sinus pain, ear pain, sore throat, difficulty swallowing, neck pain RESPIRATORY: Denies dyspnea, cough, wheezing, hemoptysis, sputum. CARDIOVASCULAR: See HPI GASTROINTESTINAL: Denies nausea, vomiting, abdominal pain, diarrhea, constipation, melena. : Denies dysuria, frequency, incontinence, hematuria, urinary retention, flank pain. MUSCULOSKELETAL: Denies weakness, joint pain, or bony pain SKIN: No rash, no erythema, no pruritus NEUROLOGIC: Denies weakness, dizziness, headache, numbness, change in speech, confusion PSYCHIATRIC: No concerning psychosocial issues. 12 point review of systems is negative except for those stated above and HPI PFSH Surgical History History of cholecystectomy (Acute) Hx of appendectomy (Acute) Hx of gastric bypass (Acute) Social History household members: spouse Smoking Status: Never smoker Exam Initial Vital Signs Initial Vital Signs: Vital Signs Temperature 98.1 F 03/29/18 09:10 Pulse Rate 60 03/29/18 09:10 Respiratory Rate 20 03/29/18 09:10 Blood Pressure 127/93 H 03/29/18 09:10 Pulse Oximetry 100 03/29/18 09:10 GENERAL: Well-appearing, well-nourished and in no acute distress. HEENT: Head atraumatic,EOMI, pupils reactive, face symmetric, [moist] mucous membranes CARDIOVASCULAR: Regular rate and rhythm without murmurs, rubs or gallops. RESPIRATORY: Breath sounds equal bilaterally, no wheezes rales or rhonchi. ABDOMEN: Soft, nontender. Normoactive bowel sounds all 4 quadrants. No guarding or rebound. EXTREMITIES: Normal range of motion, no clubbing or edema. Neurovascularly intact NEUROLOGICAL: Alert and oriented x4.Normal gait and speech. Cranial nerves II through XII grossly intact. SKIN: Warm, dry, no laceration, no petechiae, no rashes or lesions. Scores HEART Score Heart Score history: Slightly Suspicious Heart Score EKG: Normal Heart Score Age: 45-64 years old Heart Score risk factors: No known risk factors Heart Score troponin: < or = to normal limit Heart Score Total: 1 Course Orders Ordered: ED Orders 03/29/18 09:14 EKG-12 Lead Stat 03/29/18 09:21 Complete Blood Count AUTO DIFF Stat Comprehensive Metabolic Panel Stat Lipase Stat Troponin & CK Cardiac Panel Stat 03/29/18 09:33 XR chest 2V Stat 03/29/18 11:25 Troponin I Stat Vital Signs - 8 hr 03/29/18 09:10 03/29/18 09:40 03/29/18 10:48 Temperature 98.1 F Pulse Rate 60 58 L 59 L Respiratory Rate 20 12 16 Blood Pressure 127/93 H Blood Pressure [Right Arm] 121/90 H 117/79 Pulse Oximetry 100 98 98 03/29/18 11:15 03/29/18 11:45 03/29/18 12:00 Temperature Pulse Rate 55 L 53 L 59 L Respiratory Rate 24 15 13 Blood Pressure Blood Pressure [Right Arm] 118/80 118/77 119/79 Pulse Oximetry 98 100 100 MDM - Chest Pain Medical Records Data Attestation: I reviewed the patient's medical records. Lab Data Attestation: I reviewed the patient's lab results. Result diagrams: 03/29/18 09:21 03/29/18 09:21 Lab Results 03/29/18 03/29/18 03/29/18 Range/Units 09:21 09:21 11:25 WBC 6.7 (4.5-11.0) X10^3/uL RBC 5.01 (4.5-5.9) X10^6/uL Hgb 14.1 (13.5-17.5) g/dL Hct 42.8 (41-53) % MCV 85.5 (80-100) fL MCH 28.2 (26-34) PG MCHC 33.0 (30-36) % RDW 13.7 (11.6-14.8) % Plt Count 197 (150-400) X10^3/uL Neut % (Auto) 57.1 (50-75) % Lymph % (Auto) 27.8 (25-40) % [place] % (Auto) 9.6 (3-14) % Eos % (Auto) 4.4 H (2-4) % Baso % (Auto) 1.1 (0-2) % Neut # (Auto) 3800 (6526-6155) /uL Plt Morphology Comment 2+ large platelets RBC Morphology Not Reportable Sodium 145 (137-145) mmol/L Potassium 4.5 (3.4-5.1) mmol/L Chloride 107 (98-107) mmol/L Carbon Dioxide 24 (22-32) mmol/L BUN 14 (9-20) mg/dL Creatinine 0.90 (0.66-1.25) mg/dL Estimated GFR > 60.0 (>60) mL/min BUN/Creatinine Ratio 15.6 (6-22) Glucose 96 (70-100) mg/dL Calcium 9.3 (8.4-10.2) mg/dL Total Bilirubin 0.6 (0.2-1.3) mg/dL AST 32 (17-59) IU/L ALT 29 (21-72) IU/L Alkaline Phosphatase 110 (38-126) U/L Total Creatine Kinase 108 (55-170) U/L CK-MB (CK-2) 0.35 (<2.37) ng/mL CK-MB (CK-2) Rel Index 0.3 L (1.5-5.0) % Troponin I < 0.012 < 0.012 (0.01-0.034) ng/mL Total Protein 7.4 (6.3-8.2) g/dL Albumin 4.2 (3.5-5.0) g/dL Globulin 3.2 (1.7-4.1) g/dL Albumin/Globulin Ratio 1.3 (1.0-2.8) Lipase 106 (23-300) U/L Imaging Data Chest x-ray: Radiologist's impression: PROCEDURE: XR CHEST 2V INDICATIONS: chest pain TECHNIQUE: 2 views of the chest were acquired. COMPARISON: None. FINDINGS: Surgical changes and devices: None. Lungs and pleura: No pleural effusions or pneumothorax. Lungs are clear. Mediastinum: Mediastinal contours are normal. Heart size is normal. Bones and chest wall: No suspicious bony abnormalities. Soft tissues appear unremarkable. IMPRESSION: No acute disease Dictated by: Rob Garcia M.D. on 03/29/2018 at 10:09 ECG Data Attestation: I personally reviewed and interpreted this ECG as follows: Prior ECG tracings: available for review Interpretation: Normal sinus rhythm rate [address] changes similar to previous MDM Narrative Medical decision making narrative: Patient has had no further episodes of chest pain in the ED. 2 troponins and EKGs within normal limits. I discussed that he may require further cardiac testing with his primary care physician. I discussed all findings with the patient and . Education has been performed regarding treatment plan, diagnosis, warning signs and symptoms and all concerns have been addressed. Verbally agree with and understood all of the above. Discharge Plan Departure Patient Disposition: Home, Self-Care Clinical Impression: Atypical chest pain Discharge Date/Time: 03/29/18 12:20 Interventions: ED Discharge Assessment Last Done: 03/29/18 12:47 Instructions: DI for Atypical Chest Pain Activity Restrictions/Additional Instructions: *You have been diagnosed with atypical chest pain *What to do: Echocardiogram from earlier this week was reassuring. Blood work and EKGs also reassuring today. He is still may require a stress test with your primary care provider *Continue to take medications as directed *Follow up with your primary care provider in 2-3 days *Return to ER if you should have change in chest pain, worsening chest pain or any new, worsening or concerning symptoms Prescriptions: No Action clopidogrel [Plavix] 75 mg tablet 75 mg PO DAILY Qty: 30 RF: 0 metoprolol succinate [Toprol XL] 25 mg tablet extended release 24 hr 25 mg PO DAILY RF: 0 Referrals: Vidhi Betancourt DO [Primary Care Provider] -
[2018-03-29 09:40] VITALS: BP 121/90; PULSE 58; RESP 12; O2SAT 98
[2018-03-29 09:49] LABS: Alanine Aminotransferase 29 IU/L (21-72); Albumin 4.2 g/dL (3.5-5.0); Albumin Globulin Ratio 1.3 (1.0-2.8); Alkaline Phosphatase 110 U/L (38-126); Aspartate Aminotransferase 32 IU/L (17-59); BUN Creatinine Ratio 15.6 (6-22); Bilirubin Total 0.6 mg/dL (0.2-1.3); Blood Urea Nitrogen 14 mg/dL (9-20); Calcium 9.3 mg/dL (8.4-10.2); Carbon Dioxide 24 mmol/L (22-32); Chloride 107 mmol/L (98-107); Creatine Kinase 108 U/L (55-170); Estimated Glomerular Filt Rate > 60.0 mL/min (>60); Globulin 3.2 g/dL (1.7-4.1); Glucose 96 mg/dL (70-100); Lipase 106 U/L (23-300); Potassium 4.5 mmol/L (3.4-5.1); Sodium 145 mmol/L (137-145); Total Protein 7.4 g/dL (6.3-8.2)
[2018-03-29 09:54] LABS: Add Manual Diff / Slide Review NO; Basophils Percent Auto 1.1 % (0-2); Eosinophils Percent Auto 4.4 % (2-4); Hematocrit 42.8 % (41-53); Hemoglobin 14.1 g/dL (13.5-17.5); Lymphocytes Percent Auto 27.8 % (25-40); Mean Corpuscular Hemoglobin 28.2 PG (26-34); Mean Corpuscular Volume 85.5 fL (80-100); Monocytes Percent Auto 9.6 % (3-14); Neutrophils Absolute Auto 3800 /uL (3000-5900); Neutrophils Percent Auto 57.1 % (50-75); Platelet Count 197 X10^3/uL (150-400); Red Blood Cell Count 5.01 X10^6/uL (4.5-5.9); Red Cell Distribution Width 13.7 % (11.6-14.8); White Blood Cell Count 6.7 X10^3/uL (4.5-11.0)
[2018-03-29 10:04] LABS: CKMB % Relative Index 0.3 % (1.5-5.0); Creatine Kinase MB 0.35 ng/mL (<2.37)
[2018-03-29 10:08] LABS: Troponin I < 0.012 ng/mL (0.01-0.034)
[2018-03-29 10:27] LABS: HEMOLYSIS 30 (0-50)
[2018-03-29 10:48] VITALS: BP 117/79; PULSE 59; RESP 16; O2SAT 98
[2018-03-29 11:10] LABS: Platelet Morphology Comment 2+ LARGE PLATELETS
[2018-03-29 11:15] VITALS: BP 118/80; PULSE 55; RESP 24; O2SAT 98
[2018-03-29 11:45] VITALS: BP 118/77; PULSE 53; RESP 15; O2SAT 100
[2018-03-29 12:00] VITALS: BP 119/79; PULSE 59; RESP 13; O2SAT 100
[2018-03-29 12:01] LABS: Troponin I < 0.012 ng/mL (0.01-0.034)
== END 2018-03-29 12:20 | disposition home or self-care (01) ==
PROVIDERS: Emergency Provider Emergency Medicine; Family Provider Family Medicine; PCP Family Medicine
DX: R07.89 Other chest pain (principal)
CPT/HCPCS: 36415; 36591; 71046; 80053; 82550; 82553; 83690; 84484; 85025; 93005; 99283; 99285